=== PATIENT | male | born 1960 | race Caucasian/White ===

== ENCOUNTER 2019-09-11 16:27 | Emergency (ER) | payer BC ==
[2019-09-11] MEDS ORDERED: Sodium Bicarbonate 2.5 MEQ/5 ML VIAL ONE (16:47)
[2019-09-11] MEDS ORDERED: Adacel (T-DAP) 0.5 ML SYRINGE ONE (16:48)
[2019-09-11] MEDS ORDERED: Lidocaine 1% (PF) 30 ML VIAL ONE (16:48)
[2019-09-11] MEDS ORDERED: Triple Antibiotic Oint 1 GM Packet ONE (17:42)
== END 2019-09-11 17:45 | disposition home or self-care (01) ==
LOC: NAV ERS 16:27
DX: S61.210A Laceration without foreign body of right index finger without damage to nail, initial encounter (principal); Z23 Encounter for immunization; W26.8XXA Contact with other sharp object(s), not elsewhere classified, initial encounter
CPT/HCPCS: 12001; 90715; J2001

== ENCOUNTER 2019-09-24 13:43 | Emergency (ER) | payer BC | END 2019-09-24 14:03 | disposition home or self-care (01) | LOC: NAV ERS 13:43 | DX: S61.210D Laceration without foreign body of right index finger without damage to nail, subsequent encounter (principal); X58.XXXD Exposure to other specified factors, subsequent encounter ==